=== PATIENT | female | born 1945 | race American Indian/Alaskan Native ===

== ENCOUNTER 2022-02-23 18:34 | Emergency (ER) | payer MEDICARE ==
[2022-02-24 02:19] LABS: Basophils % (Auto) 0.5 % (0.0-1.8); Eosinophils # (Auto) 0.2 K/mm3 (0.0-0.4); Eosinophils % (Auto) 3.7 % (0.0-4.3); Hematocrit 39.5 % (30.3-42.9); Hemoglobin 12.6 gm/dl (10.1-14.3); Lymphocytes # (Auto) 1.7 K/mm3 (1.2-5.4); Lymphocytes % (Auto) 32.9 % (13.4-35.0); Mean Corpuscular HGB Conc 32 % (30-34); Mean Corpuscular Volume 91 fl (79-97); Monocytes # (Auto) 0.4 K/mm3 (0.0-0.8); Monocytes % (Auto) 7.2 % (0.0-7.3); Platelet Count 337 K/mm3 (140-440); Red Blood Count 4.34 M/mm3 (3.65-5.03); Red Cell Distribution Width 15.2 % (13.2-15.2)
--- NOTE | 2022-02-24 02:21 | Emergency Department Report ---
ED Chest Pain HPI - General Chief Complaint: Chest Pain Stated Complaint: CHEST PAIN RADIATING TO BOTH ARMS Time Seen by Provider: 02/24/22 01:55 Source: patient Mode of arrival: Ambulatory Limitations: No Limitations - History of Present Illness Initial Comments: 76 yo F with h/o HTn and diabetes who present with chest pain that is been going on for the last 2 months. Pt has been schedule for cardiac cath at the end of this month but says she could not wait. She described the chest pain as intermittent and radiating to her both left and right shoulder. No fever or chills or any other modifying or associated factors reported. - Related Data Previous Rx's Medication Instructions Recorded Last Taken Type HYDROcodone/APAP 5-325 [[place] 1 each PO Q6HR PRN #20 tablet 07/11/14 Unknown Rx 5-325 mg TAB] Potassium Chloride [Klor-Con 10] 10 meq PO BID 5 Days #10 tab NS 02/24/22 Unknown Rx Allergies Allergy/AdvReac Type Severity Reaction Status Date / Time Penicillins Allergy Rash Verified 07/11/14 09:42 Sulfa (Sulfonamide Allergy Rash Verified 07/11/14 09:42 Antibiotics) azithromycin [From Zithromax] AdvReac THRUSH Verified 07/11/14 09:42 ciprofloxacin [From Cipro] AdvReac AGGREVATES Verified 07/11/14 09:42 ARTHRITIS ciprofloxacin HCl AdvReac AGGREVATES Verified 07/11/14 09:42 [From Cipro] ARTHRITIS Heart Score - HEART Score History: Slightly suspicious EKG: Non-specific Age: > 65 Risk factors: 1-2 risk factors Troponin: < normal limit HEART Score: 4 - EKG Read Time Time EKG Completed: 18:38 EKG Read Time: 18:43 - Critical Actions Critical Actions: 0-3 pts:0.9-1.7%risk of adverse cardiac event.Candidate for discharge ED Review of Systems ROS: Stated complaint: CHEST PAIN RADIATING TO BOTH ARMS Other details as noted in HPI Comment: All other systems reviewed and negative Cardiovascular: chest pain ED Past Medical Hx - Past Medical History Previous Medical History?: Yes Hx Hypertension: Yes Hx Diabetes: Yes Hx Arthritis: Yes (RHEUMATOID) - Surgical History Past Surgical History?: Yes Hx Cholecystectomy: Yes Additional Surgical History: HYSTERECTOMY. RIGHT KNEEE - Social History Smoking Status: Never Smoker Substance Use Type: None - Medications Home Medications: Home Medications Medication Instructions Recorded Confirmed Last Taken Type HYDROcodone/APAP 5-325 [[place] 1 each PO Q6HR PRN #20 tablet 07/11/14 Unknown Rx 5-325 mg TAB] Potassium Chloride [Klor-Con 10] 10 meq PO BID 5 Days #10 tab NS 02/24/22 Unknown Rx ED Physical Exam - General Limitations: No Limitations General appearance: alert, in no apparent distress - Head Head exam: Present: normal inspection - Eye Eye exam: Present: normal appearance Pupils: Present: normal accommodation - ENT ENT exam: Present: normal exam, normal orophraynx, mucous membranes moist - Neck Neck exam: Present: normal inspection - Respiratory Respiratory exam: Present: normal lung sounds bilaterally. Absent: respiratory distress, accessory muscle use - Cardiovascular Cardiovascular Exam: Present: regular rate, normal rhythm, normal heart sounds - GI/Abdominal GI/Abdominal exam: Present: soft, normal bowel sounds. Absent: distended, tenderness - Extremities Exam Extremities exam: Present: normal inspection, normal capillary refill. Absent: tenderness - Back Exam Back exam: Absent: tenderness - Neurological Exam Neurological exam: Present: alert, oriented X3 - Psychiatric Psychiatric exam: Present: normal affect, normal mood - Skin Skin exam: Present: warm, normal color ED Course Vital Signs 02/24/22 02/24/22 02/24/22 01:20 01:31 01:45 Pulse Rate 82 75 70 Respiratory 15 17 17 Rate Blood Pressure 125/63 148/78 Blood Pressure 133/61 [Left] O2 Sat by Pulse 98 97 98 Oximetry 02/24/22 02/24/22 02/24/22 02:00 02:15 02:30 Pulse Rate 69 71 71 Respiratory 17 17 17 Rate Blood Pressure 143/70 162/69 166/76 Blood Pressure [Left] O2 Sat by Pulse 97 98 98 Oximetry 02/24/22 02/24/22 02/24/22 02:45 03:00 03:15 Pulse Rate 68 70 83 Respiratory 21 18 16 Rate Blood Pressure 155/64 153/64 143/84 Blood Pressure [Left] O2 Sat by Pulse 96 97 97 Oximetry 02/24/22 02/24/22 02/24/22 03:30 03:45 04:00 Pulse Rate 68 69 70 Respiratory 23 18 13 Rate Blood Pressure 152/76 156/68 163/80 Blood Pressure [Left] O2 Sat by Pulse 97 96 98 Oximetry 02/24/22 02/24/22 02/24/22 04:15 04:31 04:45 Pulse Rate 70 72 70 Respiratory 19 22 25 H Rate Blood Pressure 141/48 141/48 152/71 Blood Pressure [Left] O2 Sat by Pulse 96 97 97 Oximetry 02/24/22 02/24/22 02/24/22 05:00 05:15 05:30 Pulse Rate 70 69 71 Respiratory 20 18 23 Rate Blood Pressure 145/77 125/74 132/55 Blood Pressure [Left] O2 Sat by Pulse 99 97 95 Oximetry 02/24/22 02/24/22 02/24/22 05:45 06:00 06:15 Pulse Rate 69 72 73 Respiratory 19 20 21 Rate Blood Pressure 124/54 131/60 124/55 Blood Pressure [Left] O2 Sat by Pulse Oximetry CAIN score - Cain Score Age > 65: (0) No Aspirin use within the Past 7 Days: (0) No 3 or more CAD Risk Factors: (0) No 2 or more Angina events in past 24 hrs: (0) No Known CAD with more than 50% Stenosis: (0) No Elevated Cardiac Markers: (0) No ST Deviation Greater than 0.5mm: (0) No CAIN Score: 0 ED Medical Decision Making - Lab Data Result diagrams: 02/24/22 02:01 02/24/22 02:01 - EKG Data -: EKG Interpreted by Tn EKG shows normal: sinus rhythm Rate: normal - EKG Data Interpretation: nonspecific ST-T wave ama - Medical Decision Making Here with chest pain/pressure--differential could be but not limited to myocardial infarction, pulmonary embolism, costochondritis, anxiety, gastritis, GERD, pancreatitis, and or pyelonephritis--in order to rule out the above-- so will go ahead and order routine cardiopulmonary work-up that include troponin, EKG, chest x-ray, BNP, CKMB, and CBC, CMP and urinalysis for any correctable infectious process or electrolyte abnormality as a cause. lab viewed and noted to be unremarkable except K+ 3.2 -- so will give potassium 20 mEq PO x 11- Pt reports feeling better -- and wanted to be discharged home. Warning given with close follow up with her Cardiology for her scheduled cardiac cath Critical care attestation.: If time is entered above; I have spent that time in minutes in the direct care of this critically ill patient, excluding procedure time. ED Disposition Clinical Impression: Hyponatremia Chest pain Qualifiers: Chest pain type: unspecified Qualified Code(s): R07.9 - Chest pain, unspecified Disposition: HOME / SELF CARE / HOMELESS Is pt being admited?: No Does the pt Need Aspirin: No Condition: Stable Instructions: Nonspecific Chest Pain, Adult, [id number] Additional Instructions: Take your potassium supplement tablet for the next 3 days before following up with your primary doctor for a repeat lab Continue your other medication as prescribed by your primary doctor Call and keep your appointment with your cardiology for your cardiac catheterization Please do not hesitate to call or return to emergency room if your symptoms worsen Prescriptions: Potassium Chloride [Klor-Con 10] 10 meq PO BID 5 Days #10 tab NS Referrals: PRIMARY CARE, [Primary Care Provider] - 3-5 Days Time of Disposition: 06:02
[2022-02-24 02:27] LABS: INR 0.92 (0.87-1.13)
[2022-02-24 02:28] LABS: Partial Thromboplastin Time 26.9 Sec. (24.2-36.6)
[2022-02-24 02:52] LABS: Alanine Aminotransferase 14 units/L (7-56); Albumin 4.2 g/dL (3.9-5); Blood Urea Nitrogen 10 mg/dL (7-17); Calcium 9.4 mg/dL (8.4-10.2); Hemolysis Index 7
[2022-02-24 02:56] LABS: BUN/Creatinine Ratio 14
--- NOTE | 2022-02-24 03:43 | XRay Report ---
XR chest 1V ap INDICATION / CLINICAL INFORMATION: Chest Pain. COMPARISON: None available. FINDINGS: SUPPORT DEVICES: None. HEART /PULMONARY VASCULATURE: No significant abnormality. LUNGS / PLEURA: No significant pulmonary or pleural abnormality. No pneumothorax. ADDITIONAL FINDINGS: No significant additional findings. IMPRESSION: 1. No acute findings. Signer Name: Dayo Khoury MD Signed: 02/24/2022 3:38 AM Workstation Name: [id number]
[2022-02-24] MEDS ORDERED: POTASSIUM CHLORIDE ER 20 MEQ TAB PO ONE (05:56)
[2022-02-24 06:39] VITALS: BP 124/55
--- NOTE | 2022-02-25 08:50 | Electrocardiograph Report ---
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
== END 2022-02-24 06:20 | disposition home or self-care (01) ==
LOC: ED 18:34
DX: E87.1 Hypo-osmolality and hyponatremia (principal); R07.9 Chest pain, unspecified; I10 Essential (primary) hypertension; E11.9 Type 2 diabetes mellitus without complications; Z90.49 Acquired absence of other specified parts of digestive tract
CPT/HCPCS: 36415; 71045; 80053; 83690; 84484; 85025; 85610; 85730; 93005; 99284